=== PATIENT | male | born 1940 | race Caucasian/White ===

== ENCOUNTER 2017-06-26 10:36 | Emergency (ER) | payer OTHER, BC ==
[~2017-06-26] VITALS: Ht 175.3 cm; Wt 77.1 kg
[~2017-06-26 10:36] MED LIST: ACETAZOLAMIDE250 M2; ADVIL100 M2 PO; AMOXICILLIN500 M1; ASPIRIN325 PO; CENTRUM SILVER1 EAC1; CENTRUM SILVER1 EAC2 PO; HYDROCODON-ACE1 EA12 PO; IBUPROFEN 800800 M1 PO; LISINOPRIL5 MG PO; LORCET PLUS 7.51 TAB PO; LORTAB 5 MG/5001 TA1 OR; PRINIVIL PO; SENNA S TABLET1 EACH OR; ZOCOR PO; ZOCOR20 MG PO
[2017-06-26 11:31] LABS: HEMATOCRIT 41.5 % (42.0-52.0); HEMOGLOBIN 13.9 gm/dL (14.0-18.0); MCH 30.8 pg (26.0-34.0); MCHC 33.5 g/dL (28.0-37.0); MCV 91.9 fL (80.0-100.0); RBC 4.52 mil/uL (4.50-6.00); RDW 13.3 % (10.5-14.5); WBC 7.8 thou/uL (4.0-11.0)
[2017-06-26 11:38] LABS: CALCIUM 9.3 mg/dL (8.5-10.1); CREATININE 0.7 mg/dL (0.7-1.3); POTASSIUM 4.4 mmol/L (3.5-5.1)
[2017-06-26 11:44] LABS: ALBUMIN 3.6 g/dL (3.4-5.0); TOTAL BILIRUBIN 0.9 mg/dL (<0.1-1.0); TOTAL PROTEIN 6.8 g/dL (6.4-8.2)
[2017-06-26] MEDS ORDERED: TESSALON PERLE100 MG PO (11:50)
[2017-06-26] MEDS ORDERED: AZITHROMYCIN 2250 MG PO (11:50)
[2017-06-26] MEDS ORDERED: VENTOLIN HFA 1818 GM INH (11:50)
[2017-06-26 12:01] VITALS: BP 131/52
== END 2017-06-26 12:01 | disposition home or self-care (01) ==
LOC: ER 10:36
PROVIDERS: Physician Assistant
DX: J98.01 Acute bronchospasm (principal); I10 Essential (primary) hypertension; E78.5 Hyperlipidemia, unspecified; Z98.890 Other specified postprocedural states; F10.99 Alcohol use, unspecified with unspecified alcohol-induced disorder

== ENCOUNTER → 2017-08-09 | Outpatient (CLI) | payer OTHER, BC ==
[~2017-08-09] MED LIST changes: +AZITHROMYCIN 2250 MG PO; +TESSALON PERLE100 MG PO; +VENTOLIN HFA 1818 GM INH
== END ==
LOC: RAD 09:36
DX: J45.40 Moderate persistent asthma, uncomplicated (principal)

== ENCOUNTER 2018-02-21 09:45 | Emergency (ER) | payer OTHER, BC ==
[~2018-02-21] VITALS: Ht 175.3 cm; Wt 78.9 kg
[2018-02-21] MEDS ORDERED: ELIQUIS5 MG PO (09:51)
[2018-02-21] MEDS ORDERED: ACYCLOVIR 400400 MG PO (11:09)
[2018-02-21] MEDS ORDERED: KEFLEX500 M1 PO (11:09)
[2018-02-21 11:24] VITALS: BP 174/95
== END 2018-02-21 11:25 | disposition home or self-care (01) ==
LOC: ER 09:45
DX: B02.9 Zoster without complications (principal); I10 Essential (primary) hypertension; E78.5 Hyperlipidemia, unspecified; Z90.89 Acquired absence of other organs; Z87.891 Personal history of nicotine dependence

== ENCOUNTER 2019-04-11 09:01 | Emergency (ER) | payer OTHER, BC ==
[~2019-04-11] VITALS: Ht 175.3 cm; Wt 79.4 kg
[~2019-04-11 09:01] MED LIST changes: +ACYCLOVIR 400400 MG PO; +ELIQUIS5 MG PO; +KEFLEX500 M1 PO
[2019-04-11 10:44] VITALS: BP 162/73
== END 2019-04-11 10:40 | disposition home or self-care (01) ==
LOC: ER 09:01
DX: S61.211A Laceration without foreign body of left index finger without damage to nail, initial encounter (principal); I10 Essential (primary) hypertension; E78.5 Hyperlipidemia, unspecified; Z98.1 Arthrodesis status; Z98.41 Cataract extraction status, right eye; Z98.42 Cataract extraction status, left eye; Z95.1 Presence of aortocoronary bypass graft; Z98.890 Other specified postprocedural states; Z87.891 Personal history of nicotine dependence; W26.2XXA Contact with edge of stiff paper, initial encounter; Y93.89 Activity, other specified; Y92.89 Other specified places as the place of occurrence of the external cause; Y99.8 Other external cause status

== ENCOUNTER → 2019-07-17 | Outpatient (CLI) | payer OTHER, BC | LOC: RAD 13:54 | DX: R06.00 Dyspnea, unspecified (principal); R05 Cough ==

== ENCOUNTER 2020-06-10 17:57 | Emergency (ER) | payer OTHER, BC ==
[~2020-06-10] VITALS: Ht 177.8 cm; Wt 79.4 kg
[2020-06-10 19:50] VITALS: BP 163/79
--- NOTE | 2020-06-11 07:42 | EKG ---
[facility] [place] [address] ELECTROCARDIOGRAM REPORT Name: SURINDER BLANCHARD Room #: [facility].#: [id number] Admission: 06/10/20 Attend Phys: Discharge: Date of : 38 Report #: [id number] THIS REPORT FOR: cc: Haris Martinez MD, Rene P. MD Santiago, Patrick MD [facility] ~ THIS REPORT FOR: //name// [facility] ED Test Date: 2020-06-10 Test Time: 18:20:45 Pat Name: SURINDER BLANCHARD Department: Room: Gender: Hospital Technician: : 1940 Requested By: Fernanda Narayan Order Number: [id number] MD: Reese Magana Measurements Intervals [place] Rate: 59 P: AR: QRS: 8 QRSD: 131 T: 74 QT: 436 QTc: 432 Interpretive Statements Atrial fibrillation Ventricular bigeminy Nonspecific intraventricular conduction delay Baseline wander in lead(s) II Compared to ECG 04/12/2008 19:30:31 Ventricular premature complex(es) now present Intraventricular conduction delay now present Sinus rhythm no longer present First degree AV block no longer present ST (T wave) deviation no longer present Electronically Signed On 06-11-2020 7:42:36 CDT by Reese Magana [email or web address] <ELECTRONICALLY SIGNED> By: Reese Magana MD, [facility] 06/11/20 0742 19 19 Reese Magana MD, [facility] /EPI
== END 2020-06-10 19:50 | disposition home or self-care (01) ==
LOC: ER 17:57
DX: S01.01XA Laceration without foreign body of scalp, initial encounter (principal); I10 Essential (primary) hypertension; E78.5 Hyperlipidemia, unspecified; Z79.899 Other long term (current) drug therapy; Z87.891 Personal history of nicotine dependence; W18.39XA Other fall on same level, initial encounter; Y93.89 Activity, other specified; Y92.89 Other specified places as the place of occurrence of the external cause; Y99.8 Other external cause status

== ENCOUNTER 2021-06-29 16:49 | Emergency (ER) | payer OTHER, BC ==
[~2021-06-29] VITALS: Ht 175.3 cm; Wt 77.6 kg
[2021-06-29 16:53] VITALS: BP 107/54
[2021-07-03] MEDS ORDERED: CEPHALEXIN500 MG PO (17:12)
== END 2021-06-29 17:50 | disposition home or self-care (01) ==
LOC: ER 16:49
DX: S30.0XXA Contusion of lower back and pelvis, initial encounter (principal); S00.81XA Abrasion of other part of head, initial encounter; I10 Essential (primary) hypertension; E78.5 Hyperlipidemia, unspecified; Z98.890 Other specified postprocedural states; Z79.891 Long term (current) use of opiate analgesic; Z79.899 Other long term (current) drug therapy; Z87.891 Personal history of nicotine dependence; W01.0XXA Fall on same level from slipping, tripping and stumbling without subsequent striking against object, initial encounter; Y93.89 Activity, other specified; Y92.89 Other specified places as the place of occurrence of the external cause; Y99.8 Other external cause status

== ENCOUNTER → 2021-07-03 | Emergency (ER) | payer OTHER, BC ==
[~2021-07-03] VITALS: Ht 175.3 cm; Wt 77.6 kg
[~2021-07-03] MED LIST changes: +CEPHALEXIN500 MG PO
[2021-07-03 15:44] VITALS: BP 162/56
== END ==
LOC: ER 15:32
DX: S60.312D Abrasion of left thumb, subsequent encounter (principal); S60.512D Abrasion of left hand, subsequent encounter; I10 Essential (primary) hypertension; E78.5 Hyperlipidemia, unspecified; Z98.890 Other specified postprocedural states; Z79.899 Other long term (current) drug therapy; Z87.891 Personal history of nicotine dependence; W19.XXXD Unspecified fall, subsequent encounter